=== PATIENT | female | born 1955 | race Caucasian/White ===

== ENCOUNTER 2019-04-20 17:51 | Inpatient (IN) | payer BC ==
[~2019-04-20] VITALS: Ht 167.6 cm; Wt 92.5 kg
[2019-04-20 18:11] VITALS: Ht 167.6 cm; Wt 92.5 kg
--- NOTE | 2019-04-20 19:12 | NUR ---
PT COMES INTO ED WITH COMPLAINT OF RLE PAIN 4/10 THROBBING IN QUALITY X1 MONTH BUT HAS EXCERBATED X3 DAYS. ON ASSESSMENT RLE HAS SWELLING NOTED, AND NOTED WOUND/ULCER TO MEDIAL ASPECT NEAR TORRES AREA, ERRYTHEMA/REDNESS NOTED. CAP REFILL TO RLE <3 SEC, MODERATE PULSE. PT AOX4 ABLE TO RESPOND TO COMMANDS, LUNG SOUNDS CTAB, CHEST RISE/FALL SYMMETRIC, E/U BREATHING. AWAITING MSE BY PROVIDER.
--- NOTE | 2019-04-20 19:34 | NUR ---
DR. HIENS AT BEDSIDE FOR ASSESSMENT AND MSE.
--- NOTE | 2019-04-20 19:49 | NUR ---
COMPUTER SCIENCE PROFESSOR AT BEDSIDE FOR XRAY
[2019-04-20 19:56] LABS: BASOPHIL % 0.5 % (0-2); PLATELET COUNT 156 x10^3mcL (130-400)
[2019-04-20 19:58] LABS: RED CELL DISTRIBUTION WIDTH 15.4 % (11.5-14.5)
[2019-04-20 20:01] LABS: UA SPECIFIC GRAVITY <=1.005 (1.005-1.035); microscopic required? YES; urine erythrocyte NEGATIVE (NEGATIVE)
[2019-04-20 20:10] LABS: CALCIUM 8.6 mg/dL (8.5-10.1); CARBON DIOXIDE 30.3 mmol/L (21-32); CHLORIDE SERUM 107 mmol/L (98-107); CREATININE SERUM 0.8 mg/dL (0.6-1.0); GFR1 > 60 mL/min; GLUCOSE SERUM 124 mg/dL (74-106); POTASSIUM SERUM 3.9 mmol/L (3.5-5.1); SODIUM SERUM 144 mmol/L (136-145)
[2019-04-20 20:15] LABS: ALBUMIN 3.4 g/dL (3.4-5.0); ALKALINE PHOSPHATASE 105 U/L (46-116); ALT/SGPT 71 U/L (14-59); AST/SGOT 65 U/L (15-37); BILIRUBIN TOTAL 0.43 mg/dL (0.20-1.00); TOTAL PROTEIN, SERUM 8.1 g/dL (6.4-8.2)
--- NOTE | 2019-04-20 22:47 | NUR ---
GAVE REPORT TO KIMBERLEE TAYLOR. UPDATES PROVIDED,Q UESTIONS ANSWERED. PER DR. FLORA MICHELLE TO SEND PATIETN TO MED SURGE
[2019-04-20 23:02] LABS: CHOLESTEROL/HDL RATIO 3.2
[2019-04-20 23:16] VITALS: BP 145/76
--- NOTE | 2019-04-20 23:26 | NUR ---
RECEIVED FROM ER, TRANSPORTED VIA WHEELCHAIR. ACCOMPANIED BY HER DAUGHTER. PT ABLE TO AMBULATE TO BED FROM HALLWAY. AWAKE AND ALERT, ORIENTED TO NAME, PLACE, TIME AND SITUATION. SPEECH CLEAR AND APPROPRIATE. BREATHING EVEN AND UNLABORED ON ROOM AIR. SOUGHT ADMISSION DUE TO WOUNDS AND PAIN TO RIGHT LEG. STATED HURT LEG ONE MONTH AGO. NOTED TWO OPEN WOUNDS, SEE PHOTODOCUMENTATION AND ADMISSION SKIN PROBLEM. STATED HAVING 8/10 PAIN TO RIGHT LEG. INSTRUCTED ON USE OF CALL LIGHT TO CALL FOR ASSISTANCE, PLACED WITHIN EASY REACH. ENDORSED TO NURSE TAYLOR
--- NOTE | 2019-04-21 00:10 | NUR ---
PT RESTING COMFORTABLY IN BED. C/O 03/05 RLE PAIN MEDICATED PER EMAR. FAMILY AT BEDSIDE. EVEN AND UNLABORED RESPIRATIONS ON RA. IVL PATENT AND INTACT. OPEN WOUNDS TO RLE, DRY AND OFFICE SUPPORT ASSISTANT. BED IN LOWEST POSITION. SIDE RAILS UPX2. CALL LIGHT WITHIN REACH. WILL CONTINUE TO MONITOR.
[2019-04-21 05:35] VITALS: BP 123/58
--- NOTE | 2019-04-21 06:48 | NUR ---
PT SLEPT COMFORTABLY IN INTERVALS THROUGHOUT THE SHIFT. FAMILY AT BEDSIDE. ALL NEEDS TENDED TO AND MET. ALL SCHEDULED MEDICATIONS GIVEN. C/O RLE PAIN MEDICATED PER EMAR. IVL PATENT AND INTACT. RLE WOUNDS, DRY AND UTILITY SALES REPRESENTATIVE. BED IN LOWEST POSITION. SIDE RAILS UPX2. CALL LIGHT WITHIN REACH. WILL ENDORSE TO ONCOMING SHIFT.
[2019-04-21 06:56] LABS: BASOPHIL % 0.5 % (0-2); PLATELET COUNT 142 x10^3mcL (130-400)
[2019-04-21 07:21] LABS: CALCIUM 8.5 mg/dL (8.5-10.1); CHLORIDE SERUM 107 mmol/L (98-107); CREATININE SERUM 0.8 mg/dL (0.6-1.0); GFR1 > 60 mL/min; GLUCOSE SERUM 81 mg/dL (74-106); POTASSIUM SERUM 3.8 mmol/L (3.5-5.1); SODIUM SERUM 143 mmol/L (136-145)
[2019-04-21 07:29] LABS: RED CELL DISTRIBUTION WIDTH 15.2 % (11.5-14.5)
--- NOTE | 2019-04-21 07:35 | NUR ---
PT LYING IN BED A/A. BREATHING EQUAL/ UNLABORED ON RA. NO C/O PAIN AT THIS TIME. NO REDNESS/SWELLING TO IV SITE. RLE WOUNDS, WITH NO DRAINAGE. SWELLING TO RLE +1, NON PITTING. ELEVATED RLE ON PILLOW. BED IN LOW POSITION, CALL LIGHT IN REACH, WILL CONTINUE TO MONITOR
[2019-04-21 08:22] VITALS: BP 106/55
--- NOTE | 2019-04-21 11:13 | NUR ---
WOUND CARE EVALUATION NOTE: REASON FOR EVALUATION: RLE VASCULAR ULCER SKIN ASSESSMENT DONE WITH THIS 63 Y/O FEMALE PT. ADMITTED TO [facility] WITH HX CHRONIC WOUND TO RLE AND HX OF VARICOSE VEINS. PT. FOLLOW UP OUTPATIENT WOUND CLINIC AT [facility]. ALL ABOVE INFORMATION OBTAINED FROM ADMISSION H&P. PT. SKIN WARM AND DRY, BILATERAL LOWER EXTREMITIES WITH HYPERPIGMENTATIONS. DORSAL PEDAL PULSES NORMAL. PLAN OF CARE DISCUSSED WITH DR. COELLO/DR. THOMAS. AND PT. PT. VERBALIZES UNDERSTANDING. INTEGUMENTARY: -RIGHT LOWER MEDIAL LEG VASCULAR ULCER WITH 2 DRY ULCERATIONS WHICH ARE DISTAL SITE 3X2CM DEPTH UTD AND PROXIMAL SITE 2.5X2CM DEPTH UTD, BOTH WOUND BEDS ARE COVER WITH 100% DRY BROWN ESCHAR TISSUE, NO ODOR, CARL WOUND SKIN INTACT WITH ERYTHEMA AND MEDIAL LEG TOWAR CALF AREA WITH AN INDURATION OF FLUIDS LIKED COLLECTION, PERIWOUND SKIN INTACT, C/O PAIN WHEN STANDING UP. RECOMMENDATIONS: -ARTERIAL AND VENOUS ULTRA SOUNDS -CLEANSE RLE WOUNDS WITH NS, PAT DRY, PAINT WITH BETADINE SOLUTION BID AND LEAVE IT OPEN TO AIR -NO COMPRESSION STOCKING UNTILL WOUNDS ARE HEALED -OFFLOAD BILATERAL HEELS BY PLACING PILLOWS UNDER CALVES UNLESS OTHERWISE CONTRAINDICATED -CONTINUE TO FOLLOW RD RECOMMENDATIONS -CONTINUE TO FOLLOW UP OUTPATIENT WOUND CARE CLINIC ALL ABOVE RECOMMENDATIONS DISCUSSED WITH PRIMARY RN PLEASE CONTACT WOUND CARE NURSE FOR ANY QUESTIONS AND CHANGES IN SKIN CONDITION.
--- NOTE | 2019-04-21 11:25 | NUR ---
WOUNDS ON RLE CLEANED WITH NS, PAT DRY. BETADINE APPLIED. LEFT AIX SYSTEM ADMINISTRATOR
[2019-04-21 16:23] VITALS: BP 125/67
--- NOTE | 2019-04-21 18:41 | NUR ---
PT SITTING IN BED A/A. BREATHING EQUAL/ UNLABORED ON RA. RLE ELEVATE/ WRAPED IN BANDAGE BY PODIATRY. NO C/O PAIN. NO REDNESS/SWELLING TO IV SITE. BED IN LOW POSITION, CALL LIGHT IN REACH, FAMILY AT BED SIDE. WILL ENDORSE TO ON COMING NURSE
--- NOTE | 2019-04-21 19:00 | NUR ---
NO ANY DISTRESS THROUGHOUT SHIFT. VSS. NORCO 1 TAB PO GIVEN X1 FOR RLE PAIN WITH GOOD RELIEF. DRSG TO RLE CDI, KEPT ELEVATED ON 2 PILLOWS. ALL DUE MEDS GIVEN.
[2019-04-21 20:36] VITALS: BP 118/68
--- NOTE | 2019-04-21 20:41 | NUR ---
PT CURRENTLY RESTING IN BED, NO ACUTE DISTRESS. A/O X4. NO TELE, MED/SURG. DENIES CHEST PAIN. PULSES PALPABLE IN ALL EXTREMITIES, RLE NONPITTING EDEMA NOTED. LUNG SOUNDS CTA BILATERALLY, DENIES SOB. BOWEL SOUNDS ACTIVE, LAST BM 04/21/19. VOIDING WELL. RLE WEAKNESS, PT STATES PAIN WHILE STANDING. RLE WOUND X2, DRESSING CDI. IV PATENT AND INTACT. BED IN LOWEST POSITION, SIDE RAILS UP X2, CALL LIGHT WITHIN REACH. WILL CONTINUE TO MONITOR.
--- NOTE | 2019-04-22 00:12 | NUR ---
PT CURRENTLY RESTING IN BED, NO ACUTE DISTRESS. WILL CONTINUE TO MONITOR.
[2019-04-22 06:01] VITALS: BP 123/67
--- NOTE | 2019-04-22 06:05 | NUR ---
PT SLEPT PERIODICALLY THROUGHOUT NIGHT, NO ACUTE DISTRESS. ALL NEEDS MET AND ATTENDED TO. NO SIGNIFICANT CHANGES. IV PATENT AND INTACT. BED IN LOWEST POSITION, SIDE RAILS UP X2, CALL LIGHT WITHIN REACH. WILL ENDORSE CARE TO ONCOMING NURSE.
[2019-04-22 06:20] LABS: BASOPHIL % 0.5 % (0-2); PLATELET COUNT 140 x10^3mcL (130-400)
[2019-04-22 06:27] LABS: RED CELL DISTRIBUTION WIDTH 15.2 % (11.5-14.5)
[2019-04-22 06:43] LABS: CALCIUM 8.4 mg/dL (8.5-10.1); CARBON DIOXIDE 26.5 mmol/L (21-32); CHLORIDE SERUM 104 mmol/L (98-107); CREATININE SERUM 0.9 mg/dL (0.6-1.0); GFR1 > 60 mL/min; GLUCOSE SERUM 103 mg/dL (74-106); MAGNESIUM 1.7 mg/dL (1.8-2.4); PHOSPHOROUS 3.4 mg/dL (2.5-4.9); POTASSIUM SERUM 3.8 mmol/L (3.5-5.1); SODIUM SERUM 141 mmol/L (136-145)
[2019-04-22 08:19] VITALS: BP 110/59
--- NOTE | 2019-04-22 10:20 | NUR ---
DR SAENZ WAS AT BEDSIDE, ORDER RECEIVED TO OBTAIN CONSENT FOR PUNCH BIOPSY OF RIGHT LEG. RECEIVED CONSENT FROM PATIENT USING DRAWING TENDER PHONE. SIGNED BY PATIENT AND DR SAENZ, CHARTED. LIDOCAINE OBTAINED FROM [facility] AND GIVEN TO DR SAENZ TO ADMINISTER DURING PROCEDURE.
--- NOTE | 2019-04-22 12:31 | NUR ---
Initial Nutrition Assessment (255-B): ROSAMARIA MALONEY 63F Dx: Cellulitis RLE PMHx: BLE varicose veins PSHx: Appendectomy Labs: Ca 8.4L, AST 65H, ALT 71H, Mg 1.7L, BG 103 WNL, A1c 6.1 Meds: Ancef, Colace, Lactinex, Zofran Diet: Regular PO intake since admission: 100% Ht: 66in Wt: 204# BMI: 32.9 Bed scale: 206.6 # IBW: 130 %IBW: 157 UBW: ~200# Age: 63 Food Allergies: NKFA Skin: RLE wounds x2 Marques: 20 Edema: non-piting RLE GI: Last BM: 04/20 RD Note (04/22): Per H&P, pt came in for non-healing wounds RLE x 1mo, burning sensation 10/10, non-radiating, aggravated by prolonged standing/walking. Noted pt on fluid restriction 1200mL and Dx preDm. Dr Mcclure nephro consult pending. Progress note, US RLE revealve negative for DVTprox incompitent saphenous venous valve, superficial varicosities, podiatry consult pending. Podiatry educated pt on pathology and preventative measures. Pt discussed in bed huddles, pt w/ small stone in bile duct from HIDA scan, possible Sx. industrial safety and health specialist eval RLE vascular ulcer RLE medial: site1 3x2cm, site 2 2.5x2cm. Visited pt bedside, states still has pain in legs, but better vs upon admission. Pt appropriate for diet supplementation r/t wound healing. Discussed ONS w/ pt, agreeable to receive. Spoke w/ TROUBLE TRACER Farshad regarding diet & ONS, confirmed. Problem with N/V/D/C: None Problems with: Chewing: No Swallowing: No Current appetite: Good Recent wt change: N/A %wt change: N/A Vitamin/Supplement use: No Special diet at home: Regular Physical activity: N/A Nutrition education given (specify specific nutrition education and handout given): None given at this time. Food-drug interactions? Education given? None given at this time. Estimated Nutritional Needs Based on actual body weight (92.5kg) Energy: 3504-8930 kcal/day (30-35 kcal/kg cellulitis) Protein: 139-185 g/day (1.5-2.0 g/kg for wound healing) Fluid: 2000-0197 (1 mL/kcal), or per MD Nutrition Diagnosis: 1. Increased nutrient (protein) needs r/t wound healing AEB non-healing vascular ulcers x2 RLE 2/2 cellulitis Intervention: 1. Change Regular diet order to [facility] diet 2. Add ProSource BID 3. Add 1pk Tesfaye BID 4. Spoke w/ TROUBLE TRACER Farshad regarding diet & ONS, confirmed. Monitor/Evaluate: Goal: PO intake at least 75% of estimated needs Monitor: PO intake, Labs, GI function F/U in 2-3 days as high risk 04/24-04/25
--- NOTE | 2019-04-22 12:31 | NUR ---
Recommednation(s): 1. Change Regular diet order to [facility] diet 2. Add ProSource BID 3. Add 1pk Tesfaye BID 4. Spoke w/ EXPLOSIVES ENGINEER Farshad regarding diet & ONS, confirmed.
--- NOTE | 2019-04-22 13:25 | NUR ---
PODIATRY TEAM AT BEDSIDE PERFORMING DEBRIDEMENT AND BIOPSY PROCEDURE TO RLE.
[2019-04-22 16:51] VITALS: BP 122/69
--- NOTE | 2019-04-22 18:15 | NUR ---
PATIENT TOLERATED MEALS WELL. DRESSING TO RLE CLEAN/DRY/INTACT. STATES PAIN TOLERABLE AT THIS TIME AND MANAGED W/ NORCO. NO OTHER SIGNFICANT CHANGE IN CONDITION. WILL CONT TO MONITOR AND ENDORSE TO NOC NURSE. FAMILY AT BEDSIDE.
--- NOTE | 2019-04-22 19:30 | NUR ---
RECIEVED PATIENT AT START OF SHIFT A/O X4, KAZAKH SPEAKING. REPORTED 6/10 PAIN TO HER RLE. DRESSING ON RLE IS CDI. NO SOB ON RA. IV TO RAC IS SALINE LOCKED AND PATENT. BED LOCKED AND IN LOWEST POSITION, CALL LIGHT AND BEDSIDE TABLE WITHIN REACH.
--- NOTE | 2019-04-22 19:44 | NUR ---
PATIENT GIVEN NORCO FOR 6/10 PAIN TO RLE.
[2019-04-22 20:26] VITALS: BP 104/59
--- NOTE | 2019-04-22 20:35 | NUR ---
PATIENT IS REPORTING NEW ONSET CHEST PAIN SHE RATES 6/10. SHE STATES SHE HAS NEVER HAD THIS PAIN BEFORE. ALL VITALS WNL, DR. SAMUELED INFORMED. NEW ORDERS FOR EKG, TROPONIN, ASPIRIN, AND MORPHINE OBTAINED.
--- NOTE | 2019-04-22 21:30 | NUR ---
PATIENT'S TROPONIN IS NEGATIVE, EKG SHOWS SINUS ALINA 59. MD AWARE. WILL MEDICATE FOR PAIN.
--- NOTE | 2019-04-22 21:37 | NUR ---
MORPHINE ADMINISTERED PER EMAR FOR REPORT OF CHEST PAIN 02/02.
--- NOTE | 2019-04-23 00:17 | NUR ---
PATIENT'S EYES ARE CLOSED, BREATHS EVEN AND REGULAR. NO SIGNS OF DISTRESS. CALL LIGHT AND BEDSIDE TABLE WITHIN REACH.
--- NOTE | 2019-04-23 04:21 | NUR ---
PATIENT IS REPORTING 7/10 PAIN TO RLE. MEDICATED WITH NORCO PER EMAR.
[2019-04-23 05:21] VITALS: BP 107/64
--- NOTE | 2019-04-23 06:20 | NUR ---
PATIENT REPORTS RELIEF OF PAIN, NOW 10 TO RLE. NO SOB ON RA. IV INFUSING WITHOUT ERYTHEMA OR INFILTRATION. RLE DRESSING REMIANS CDI. CALL LIGHT AND BEDSIDE TABLE WITHIN REACH. WILL ENDORSE CARE TO [facility] N[facility].
[2019-04-23 07:10] LABS: BASOPHIL % 0.3 % (0-2); PLATELET COUNT 135 x10^3mcL (130-400)
--- NOTE | 2019-04-23 07:20 | NUR ---
PATIENT RESTING IN BED, ALERT/ORIENTED. DENIES HEADACHE OR CHEST PAIN AT THIS TIME. NO RESP DISTRESS ON RA. PERIPHERAL PULSES PALPABLE, TRACE EDEMA NONPITTING TO RLE, VARICOSE VEINS APPARENT TO BLE. DRESSING TO RLE INTACT, STATES THROMBING PAIN PRESENT 12/03 REQUESTING FOR NORCO WHEN DUE. BOWEL SOUNDS ACTIVE, DENIES ABD DISCOMFORT OR CONSITPATION. DENIES N/V. IV SITE WNL, CALL LIGHT WITHIN REACH. BED AT LOWEST POSITION, BSC IN PLACE. WILL CONT TO MONITOR.
[2019-04-23 07:37] LABS: RED CELL DISTRIBUTION WIDTH 15.3 % (11.5-14.5)
[2019-04-23 07:51] LABS: CALCIUM 8.5 mg/dL (8.5-10.1); CARBON DIOXIDE 29.1 mmol/L (21-32); CHLORIDE SERUM 106 mmol/L (98-107); CREATININE SERUM 0.7 mg/dL (0.6-1.0); GFR1 > 60 mL/min; GLUCOSE SERUM 91 mg/dL (74-106); POTASSIUM SERUM 4.4 mmol/L (3.5-5.1); SODIUM SERUM 141 mmol/L (136-145)
[2019-04-23 08:19] VITALS: BP 118/61
--- NOTE | 2019-04-23 08:35 | NUR ---
PODIATRY CAME AT BEDSIDE TO CHANGE DRESSING. PATIENT TOLERATED FAIR, SENSATION INTACT. REQEUSTING MED FOR RLE PAIN 5/10 THROMBING, NORCO NOW DUE AND GIVEN. FAMILY MEMBER AT BEDSIDE. CALL LIGHT WITHIN REACH.
[2019-04-23 10:59] VITALS: BP 118/61
--- NOTE | 2019-04-23 11:46 | NUR ---
DISCHARGE INSTRUCTIONS GIVEN VIA TELEPHONE TEMP RECRUITER #[id number], PATIENT AND DAUGHTER ARIA AT BEDSIDE VERBALIZED UNDERSTANDING. ALL QUESTIONS/CONCERNS ADDRESSED. DRESSING TO RLE CDI, TO REMAIN ON PER PODIATRY UNTIL FOLLOW UP AT CLINIC. IV DC'D CATH INTACT.
== END 2019-04-23 12:01 | disposition home or self-care (01) | DRG 603 ==
LOC: ED 17:51 → MU 22:16
PROVIDERS: Emergency Medicine; ADMIT General Practice
DX: L03.115 Cellulitis of right lower limb (principal); N39.0 Urinary tract infection, site not specified; L03.116 Cellulitis of left lower limb; Z90.49 Acquired absence of other specified parts of digestive tract; R73.03 Prediabetes; I83.93 Asymptomatic varicose veins of bilateral lower extremities
CPT/HCPCS: 87107; 87116; 87206; G0378; J0690; J1644; J2001; J2270; J7050; Q0092